=== PATIENT | female | born 1975 | race Caucasian/White ===

== ENCOUNTER 2022-01-10 04:03 | Emergency (ER) | payer MEDICAID ==
[~2022-01-10] VITALS: Ht 167.6 cm; Wt 73.0 kg
[2022-01-10] MEDS ORDERED: ALBUTEROL (0.083%) 2.5MG/3ML NEB HHN ONE (04:30)
[2022-01-10] MEDS ORDERED: PREDNISONE 20MG TABLET PO ONE (04:30)
[2022-01-10] MEDS ORDERED: ALBU18HF2 IH (04:54)
[2022-01-10] MEDS ORDERED: P50 MT (04:54)
[2022-01-10] MEDS ORDERED: AZIT250T12 MT (05:48)
[2022-01-10 06:00] VITALS: BP 128/65
== END 2022-01-10 06:05 | disposition home or self-care (01) ==
LOC: ER 04:03
DX: R05.9 Cough, unspecified (principal); J45.909 Unspecified asthma, uncomplicated; I25.2 Old myocardial infarction; Z20.822 Contact with and (suspected) exposure to COVID-19; Z98.890 Other specified postprocedural states
CPT/HCPCS: 71045; 81025; 87420; 87804; 94640; 99284; J7512; Z7610

== ENCOUNTER 2022-01-13 21:53 | Inpatient (IN) | payer MEDICAID ==
[~2022-01-13] VITALS: Ht 167.6 cm; Wt 82.2 kg
[~2022-01-13 21:53] MED LIST: ALBU18HF2 IH; AZIT250T12 MT; P50 MT
[2022-01-13] MEDS ORDERED: NITROGLYCERIN SPRAY/4.9GM CAN TL ONE (23:15)
[2022-01-13] MEDS ORDERED: ASPIRIN 325MG EC TABLET PO ONE (23:15)
[2022-01-13] MEDS ORDERED: LEVETIRACETAM 1,000 MG in SODIUM CHLORIDE 0.9% 100 ML IV SCH (23:30)
[2022-01-13] MEDS ORDERED: ASPIRIN 81MG TABLET PO ONE (23:30)
[2022-01-13] MEDS ORDERED: FENTANYL CITRATE/PF 50MCG/ML 2ML VIAL IV ONE (23:30)
[2022-01-13] MEDS ORDERED: NITROGLYCERIN 0.4MG TABLET SL SL ONE (23:30)
[2022-01-13 23:54] LABS: BASOPHILS % 0.5 % (0.0-2.0); EOSINOPHILS % 1.1 % (0.0-5.0); HEMATOCRIT. 34.8 % (36.0-48.0); HEMOGLOBIN. 11.1 g/dL (12.0-16.0); LYMPHOCYTES % 24.6 % (20.0-50.0); MEAN CORPUSCULAR HEMOGLOBIN 25.5 pg (28.0-32.0); MEAN CORPUSCULAR VOLUME 79.7 fL (81.0-99.0); MEAN PLATELET VOLUME 9.2 fl (7.4-10.4); MONOCYTES % 7.2 % (2.0-8.0); NEUTROPHILS % 66.6 % (40.0-76.0); PLATELET 230 x1000/uL (130-400); RED BLOOD CELL COUNT 4.36 mill/uL (4.2-5.4); RED CELL DISTRIBUTION WIDTH 17.1 % (11.6-14.6)
[2022-01-14] VITALS (8 sets, daily range): BP systolic 91–147; BP diastolic 50–103
[2022-01-14 00:05] LABS: D-DIMER 0.74 mg/L FEU (<0.50); PROTHROMBIN TIME 10.6 sec (9.6-11.0)
[2022-01-14 00:08] LABS: CHLORIDE 106 mEq/L (98-107)
[2022-01-14] MEDS ORDERED: ATROPINE SULFATE 1MG/10ML SYR ONE (00:34)
[2022-01-14] MEDS ORDERED: MIDAZOLAM HCL 2 MG/2 ML VIAL ONE (00:58)
[2022-01-14] MEDS ORDERED: HEPARIN 1000 UNITS/ML 10ML ONE (00:58)
[2022-01-14] MEDS ORDERED: FENTANYL CITRATE/PF 50MCG/ML 2ML VIAL ONE (00:58)
[2022-01-14] MEDS ORDERED: IODIXANOL 320MG/ML 100 ML BOTTLE IV ONE (00:58)
[2022-01-14] MEDS ORDERED: LIDOCAINE HCL/PF 1% 10 MG/ML 5ML VIAL ONE (00:58)
[2022-01-14] MEDS ORDERED: DIGOXIN 500MCG/2ML AMP IV NR (01:45)
[2022-01-14] MEDS ORDERED: ATROPINE SULFATE 1MG/10ML SYR IV PRN (01:45)
[2022-01-14] MEDS ORDERED: ACETAMINOPHEN 325MG TABLET PO PRN (01:45)
[2022-01-14] MEDS ORDERED: ASPI-1497 PO (01:56)
[2022-01-14] MEDS ORDERED: ENOXAPARIN 80MG/0.8ML SYR SUBCUT SCH ×3 (02:30→09:00)
[2022-01-14] MEDS ORDERED: INFLUENZA VACCINE 05/PF 0.5 ML SYRINGE IM ONE (09:00)
[2022-01-14] MEDS: ENOXAPARIN 80MG/0.8ML SYR SUBCUT SCH ×2 (10:28→20:48)
[2022-01-14] MEDS ORDERED: HYDROCODONE/ACETAMINOPHEN 5/325MG TABLET PO PRN (10:30)
[2022-01-14] MEDS ORDERED: CLONIDINE 0.1MG TABLET PO PRN (10:30)
[2022-01-14] MEDS ORDERED: LORAZEPAM 0.5MG TABLET PO PRN (10:30)
[2022-01-14] MEDS ORDERED: DOCUSATE SODIUM 100MG CAPSULE PO PRN (10:30)
[2022-01-14] MEDS ORDERED: NALOXONE HCL 0.4MG/ML VIAL IV PRN (10:30)
[2022-01-14] MEDS ORDERED: ONDANSETRON HCL 4MG/2ML INJ IV PRN (10:30)
[2022-01-14] MEDS ORDERED: IPRATROPIUM/ALBUTEROL 0.5-3(2.5)MG/3ML NEB HHN PRN (10:30)
[2022-01-15] VITALS: BP 114/62
[2022-01-15 04:00] VITALS: BP 113/72
[2022-01-15 05:52] LABS: BASOPHILS % 0.8 % (0.0-2.0); HEMATOCRIT. 28.1 % (36.0-48.0); LYMPHOCYTES % 35.3 % (20.0-50.0); MEAN CORPUSCULAR HEMOGLOBIN 25.7 pg (28.0-32.0); MEAN CORPUSCULAR VOLUME 79.9 fL (81.0-99.0); MEAN PLATELET VOLUME 8.8 fl (7.4-10.4); NEUTROPHILS % 53.9 % (40.0-76.0); PLATELET 159 x1000/uL (130-400); RED BLOOD CELL COUNT 3.52 mill/uL (4.2-5.4); RED CELL DISTRIBUTION WIDTH 17.2 % (11.6-14.6)
[2022-01-15 05:52] LABS: CHLORIDE 109 mEq/L (98-107)
[2022-01-15 06:08] LABS: HDL CHOLESTEROL 33 mg/dL (40-59); LDL CHOLESTEROL 72 mg/dL (5-100)
[2022-01-15 08:00] VITALS: BP 128/77
[2022-01-15] MEDS: ENOXAPARIN 80MG/0.8ML SYR SUBCUT SCH (09:24)
[2022-01-15 12:11] VITALS: BP 159/79
[2022-01-15 12:50] VITALS: BP 159/79
[2022-01-15 16:05] LABS: T4 FREE 1.1 ng/dL (0.76-1.46)
[2022-01-15] MEDS ORDERED: CARVEDILOL 6.25 MG TABLET PO SCH (21:00)
[2022-01-16] MEDS ORDERED: LISINOPRIL 5MG TABLET PO SCH (09:00)
== END 2022-01-15 15:09 | disposition home or self-care (01) | DRG 190 ==
LOC: ER 21:53 → 3WST 01-14 00:30
PROVIDERS: ADMIT Internal Medicine; ATTEND Internal Medicine
PROC: 4A023N7 Measurement of Cardiac Sampling and Pressure, Left Heart, Percutaneous Approach (ICD-10-PCS; principal; 2022-01-14)
PROC: B211YZZ Fluoroscopy of Multiple Coronary Arteries using Other Contrast (ICD-10-PCS; 2022-01-14)
PROC: B215YZZ Fluoroscopy of Left Heart using Other Contrast (ICD-10-PCS; 2022-01-14)
DX: I21.3 ST elevation (STEMI) myocardial infarction of unspecified site (principal); I50.23 Acute on chronic systolic (congestive) heart failure; I11.0 Hypertensive heart disease with heart failure; I48.91 Unspecified atrial fibrillation; Z20.822 Contact with and (suspected) exposure to COVID-19; D64.9 Anemia, unspecified; D72.829 Elevated white blood cell count, unspecified; J45.909 Unspecified asthma, uncomplicated; F15.10 Other stimulant abuse, uncomplicated; Z87.891 Personal history of nicotine dependence
CPT/HCPCS: 36415; 71045; 80048; 80053; 80061; 82542; 83036; 83880; 84439; 84443; 84481; 84484; 85025; 85379; 87426; 90686; 93005; 93306; 93458; 99291; C1769; C1887; C1893; C9803; J0461; J1160; J1644; J1650; J1953; J2250; J3010; J3490; J7050; Q9967